=== PATIENT | male | born 1990 | race Caucasian/White ===

== ENCOUNTER 2025-08-02 15:17 | Emergency (ER) | payer OTHER, MEDICAID ==
[~2025-08-02] VITALS: Ht 175.3 cm; Wt 124.9 kg
[2025-08-02 15:42] VITALS: O2SAT 98
[2025-08-02] MEDS: PENICILLIN G BENZATHINE 2,400,000 UNITS/4ML SYR IM SCH (16:39)
[2025-08-02] MEDS: DEXAMETHASONE 10 MG/ML VIAL IV NR (16:39)
[2025-08-02 16:43] LABS: HEMATOCRIT. 46.2 % (42.0-52.0); HEMOGLOBIN. 15.8 g/dL (14.0-18.0); MEAN PLATELET VOLUME 7.6 fl (7.4-10.4); PLATELET 197 x1000/uL (130-400); RED BLOOD CELL COUNT 5.10 mill/uL (4.7-6.1); RED CELL DISTRIBUTION WIDTH 13.1 % (11.6-14.6)
[2025-08-02 16:56] LABS: CREATININE 0.9 mg/dL (0.6-1.3); UREA NITROGEN BLOOD 13 mg/dL (9-23)
[2025-08-02 18:13] LABS: BAND% 2.0 % (1.0-6.0); LYMPHOCYTES % MANUAL 4.0 % (20.0-50.0); MONOCYTES % MANUAL 7.0 % (2.0-8.0); NEUTROPHILS % MANUAL 87.0 % (45.0-75.0); PLATELET ESTIMATE NORMAL
[2025-08-02] MEDS: VANCOMYCIN 1G PREMIX 200 ML IV SCH (18:25)
[2025-08-02 19:33] VITALS: TEMP 37
[2025-08-02] MEDS ORDERED: CLINDAMYCIN 600 MG in DEXTROSE 5% WATER 50 ML IV ONE (21:30)
[2025-08-02] MEDS: CLINDAMYCIN 600MG PREMIX 50 ML IV SCH (22:44)
[2025-08-02] MEDS ORDERED: IOHEXOL-300 100 ML BOTTLE ONE (23:10)
[2025-08-02 23:42] VITALS: BP 130/80; PULSE 88; RESP 16; O2SAT 99
== END 2025-08-02 23:42 | disposition left against medical advice (07) ==
LOC: ER 15:17
DX: J39.0 Retropharyngeal and parapharyngeal abscess (principal)
CPT/HCPCS: 99291; 96365; 70491; 96367; 96375; 80048; 87430; 83605; 85025; 87070; 36415; 96372; J0561; Q9967; J1100; J3373; J3490